=== PATIENT | female | born 1940 | race Caucasian/White ===

== ENCOUNTER → 2020-02-07 | Outpatient (CLI) | payer MEDICARE, OTHER | END | disposition home or self-care (01) | LOC: SHCH 09:34 | PROVIDERS: ATTEND Internal Medicine Cardiovascular Disease | DX: I87.2 Venous insufficiency (chronic) (peripheral) (principal); I50.32 Chronic diastolic (congestive) heart failure | CPT/HCPCS: 93970 ==

== ENCOUNTER 2023-09-18 21:31 | Emergency (ER) | payer MEDICARE, OTHER ==
[~2023-09-18] VITALS: Ht 165.1 cm; Wt 74.8 kg
[2023-09-18] MEDS ORDERED: PHENAZOPYRIDINE HCL 200 MG TABLET PO ONE (22:30)
[2023-09-18] MEDS ORDERED: CLONIDINE HCL 0.1 MG TABLET PO ONE (22:30)
[2023-09-18 22:36] LABS: APPEARANCE,URINE CLOUDY (CLEAR); BILIRUBIN,URINE NEGATIVE (NEGATIVE); COLOR,URINE DARK-YELLOW (YELLOW); GLUCOSE, URINE (UA) NEGATIVE (NEGATIVE); KETONES,URINE NEGATIVE (NEGATIVE); LEUKOCYTE ESTERASE ,URINE 500 Leu/uL (NEGATIVE); NITRATE,URINE 1+ (NEGATIVE); OCCULT BLOOD,URINE LARGE (NEGATIVE); PH,URINE 6.5 (5.0-8.0); PROTEIN,URINE 30 mg/dL (NEGATIVE); UROBILINOGEN,URINE 0.2 mg/dL (0.2-1.0)
[2023-09-18 22:44] LABS: ADD UA MICROSCOPIC YES
[2023-09-18 22:48] LABS: RBC,URINE TNTC /HPF (0-1); SQUAMOUS EPITHELIAL CELL,UR RARE /HPF (0-2); WBC,URINE TNTC /HPF (0-1)
[2023-09-18 23:02] VITALS: BP 159/89; PULSE 84; RESP 19; O2SAT 98
[2023-09-18] MEDS ORDERED: CEFD300C3 PO (23:13)
[2023-09-18] MEDS ORDERED: ACET-66 PO (23:13)
[2023-09-18] MEDS ORDERED: PHEN-847 PO (23:13)
[2023-09-18] MEDS ORDERED: CEFTRIAXONE 1G VIAL IM ONE (23:30)
== END 2023-09-18 23:28 | disposition home or self-care (01) ==
LOC: EDH 21:31
DX: N39.0 Urinary tract infection, site not specified (principal); I10 Essential (primary) hypertension; Z79.899 Other long term (current) drug therapy
CPT/HCPCS: 99283; 87077; 87088; 87186; 81001; 96372; J0696